=== PATIENT | female | born 1965 | race African-American/Black ===

== ENCOUNTER 2022-08-16 20:19 | Emergency (ER) | payer OTHER ==
[~2022-08-16] VITALS: Ht 170.2 cm; Wt 110.7 kg
[2022-08-16 20:23] VITALS: BP 133/83
--- NOTE | 2022-08-16 20:26 | NUR ---
pt to bed 11
--- NOTE | 2022-08-16 21:10 | NUR ---
ER MD Nix at bedside examining patient.
--- NOTE | 2022-08-16 21:20 | NUR ---
Patient discharged with v/s stable. Written and verbal after care instructions given and explained. Patient verbalized understanding. Ambulatory with steady gait. All questions addressed prior to discharge. Advised to follow up with PMD.
== END 2022-08-16 21:20 | disposition home or self-care (01) ==
LOC: MED 20:19
DX: R55 Syncope and collapse (principal)
CPT/HCPCS: 99283